=== PATIENT | female | born 1970 | race African-American/Black ===

== ENCOUNTER 2019-01-04 13:11 | Emergency (ER) | payer MEDICAID, OTHER ==
[~2019-01-04] VITALS: Ht 182.9 cm; Wt 68.0 kg
[~2019-01-04 13:11] MED LIST: CLARITIN; MOTRIN
[2019-01-04 13:57] VITALS: BP 154/98
== END 2019-01-04 14:55 | disposition home or self-care (01) ==
LOC: ER 13:11
DX: S90.561A Insect bite (nonvenomous), right ankle, initial encounter (principal); Z91.013 Allergy to seafood; Z91.018 Allergy to other foods; Z98.890 Other specified postprocedural states; W57.XXXA Bitten or stung by nonvenomous insect and other nonvenomous arthropods, initial encounter; Y93.89 Activity, other specified; Y92.018 Other place in single-family (private) house as the place of occurrence of the external cause
CPT/HCPCS: 99281

== ENCOUNTER 2022-04-18 20:46 | Emergency (ER) | payer MEDICAID, OTHER ==
[~2022-04-18] VITALS: Ht 182.9 cm; Wt 70.3 kg
[2022-04-18 20:53] VITALS: BP 155/100
== END 2022-04-19 00:30 | disposition left against medical advice (07) ==
LOC: ER 20:46
DX: Z53.21 Procedure and treatment not carried out due to patient leaving prior to being seen by health care provider (principal)